=== PATIENT | female | born 1930 | race Caucasian/White ===

== ENCOUNTER 2017-05-13 13:31 | Emergency (ER) | payer MEDICARE, OTHER ==
[~2017-05-13] VITALS: Ht 147.3 cm; Wt 44.2 kg
[2017-05-13 13:46] VITALS: BP 152/75
== END 2017-05-13 16:36 | disposition home or self-care (01) ==
LOC: ER 13:31
DX: M79.674 Pain in right toe(s) (principal); Z60.2 Problems related to living alone; Z88.0 Allergy status to penicillin
CPT/HCPCS: 73660; 99284